=== PATIENT | female | born 1965 | race Caucasian/White ===

== ENCOUNTER 2021-12-28 21:02 | Emergency (ER) | payer BC, SELFPAY ==
[~2021-12-28] VITALS: Ht 157.5 cm; Wt 50.3 kg
[2021-12-28 21:02] VITALS: BP_SYST 118
--- NOTE | 2021-12-28 21:02 | NUR ---
Placed in room 5 . Placed on registered nurse cardiac, blood pressure machine and pulse oximeter. To gown for exam. Side rails up. Report given to DOUG CESPEDES
--- NOTE | 2021-12-28 21:09 | NUR ---
55 YR OLD AOX4, AMBULATORY FEMALE WITH COPLAINT OF BACK PAIN 06/16, SOB AND NAUSEA WITH VOMITING FOR ONE DAY. PT REPORTS SINCE RECIEVING COVID VACCINE SHE HAS HAD NUMEROUS HEALTH CONDITIONS DIAGNOSED RECENTLY. PT REPORTS BEING DIAGNOSED WITH NECK LYMPHOMA AND A HIATAL HERNIA. PT DENIES CHEST PAIN OR DIZZYNESS. PT PLACED ON VIDEO RENTAL CLERK. EKG COMPLETE. AWAITING MD EVALUATION. WILL MONITOR NEEDED
--- NOTE | 2021-12-28 22:54 | NUR ---
ER at bedside examining patient.
[2021-12-28 23:03] LABS: BASOPHILS % (AUTO) 0.2 % (0.0-2.0); EOSINOPHILS % (AUTO) 0.3 % (0.0-4.0); HEMATOCRIT 27.1 % (36-48); HEMOGLOBIN 8.7 g/dL (12.0-16.0); LYMPHOCYTES # (AUTO) 1.3 K/uL (1.0-5.5); LYMPHOCYTES % (AUTO) 10.5 % (20.5-51.5); MEAN CORPUSCULAR HEMOGLOBIN 24 pg (27-31); MEAN CORPUSCULAR HGB CONC 32 % (32-36); MEAN CORPUSCULAR VOLUME 74 fL (79.0-98.0); MONOCYTES # (AUTO) 0.6 K/uL (0.0-1.0); MONOCYTES % (AUTO) 4.9 % (1.7-9.3); NEUTROPHILS # (AUTO) 10.5 K/uL (1.8-7.7); NEUTROPHILS % (AUTO) 84.1 % (40.0-70.0); PLATELET COUNT (AUTO) 418 K/uL (130-430); RED BLOOD CELL COUNT(AUTO) 3.65 MIL/uL (4.2-6.2); RED CELL DISTRIBUTION WIDTH 16.7 % (9.0-15.0); WHITE BLOOD COUNT (AUTO) 12.5 K/uL (4.8-10.8)
[2021-12-28] MEDS ORDERED: KETOROLAC TROMETHAMINE 60 MG/2 ML VIAL IM ONE (23:30)
[2021-12-28] MEDS ORDERED: ONDANSETRON 4 MG ODT TAB PO ONE (23:30)
[2021-12-28 23:33] LABS: INR 1.2 (0.8-1.2); PROTHROMBIN TIME 11.6 SECS (9.5-12.5)
[2021-12-28 23:39] LABS: ANION GAP 10 (5-15); CALCIUM 9.6 mg/dL (8.4-11.0); CHLORIDE 102 mmol/L (98-107); CREATININE 0.66 mg/dL (0.55-1.30); GLUCOSE 107 mg/dL (70-99); POTASSIUM 3.8 mmol/L (3.5-5.1); SODIUM SERUM 137 mmol/L (136-145); UREA NITROGEN, BLOOD 15 mg/dL (8-21)
[2021-12-28 23:42] LABS: GFR AFRICAN AMERICAN 119 mL/min (>90)
[2021-12-28 23:45] LABS: ALANINE AMINOTRANSFERASE 10 U/L (12-78); ALBUMIN 2.9 g/dL (3.4-4.8); ASPARTATE AMINOTRANSFERASE 15 U/L (10-37); TOTAL BILIRUBIN 0.2 mg/dL (0.0-1.0)
--- NOTE | 2021-12-29 | NUR ---
URINE OBTAINED AND TAKEN TO LAB
[2021-12-29 01:02] LABS: BILIRUBIN,URINE NEGATIVE (NEGATIVE); CLARITY/URINE CLEAR (CLEAR); COLOR,URINE YELLOW (YELLOW); GLUCOSE,URINE NEGATIVE (NEGATIVE); KETONES,URINE NEGATIVE (NEGATIVE); LEUKOCYTE ESTERASE ,URINE NEGATIVE (NEGATIVE); NITRITE, URINE NEGATIVE (NEGATIVE); PROTEIN URINE NEGATIVE (NEGATIVE); UROBILINOGEN,URINE 0.2 (0.2-1.0)
[2021-12-29 01:03] LABS: BLOOD, URINE TRACE (NEGATIVE)
[2021-12-29 02:00] VITALS: BP_SYST 118
--- NOTE | 2021-12-29 02:49 | NUR ---
PT IN BED RESTING, EYES CLOSED. PT RESPONSIVE TO VERBAL STIMULI. AWAITING DISPOSITION. WILL MONITOR NEEDED
--- NOTE | 2021-12-29 04:39 | NUR ---
AT THE BEDSIDE TO RE EVALUATE PT. PT PENDING RADIOLOGY RESULTS. RECENT BIOPSY FOR LYMPHOMA. MD ENCOUARGED PT TO OBTAIN PET SCAN AND OBTAIN REFERALL TO ONCOLOGIST.
--- NOTE | 2021-12-29 06:42 | NUR ---
PT DISCHARGED WITH [facility] INSTRUCTIONS AND PRESCRIPTION. PT PROVIDED WITH COPY OF CT SCANS AND LABWORK. IV REMOVED CATHTER INTACT, BANDAID APPLIED TO SITE. PT TOLERATED WELL. PT ENCOUARGED TO FOLLOW UP WITH DEFENSIVE LINE COACH. ALL QUESTIONS ANSWERED. PT DISCHARGED WITH ALL BELONGINGS, AMBULATORY WITH STEADY GAIT.
[2022-01-02] MEDS ORDERED: HYDR-3917 PO (10:43)
== END 2021-12-29 06:49 | disposition home or self-care (01) ==
LOC: SED 21:02
DX: M48.54XA Collapsed vertebra, not elsewhere classified, thoracic region, initial encounter for fracture (principal); Z79.899 Other long term (current) drug therapy
CPT/HCPCS: 36415; 71046; 71275; 72128; 72131; 76376; 80053; 81003; 83880; 84484; 85025; 85379; 85610; 85730; 93005; 96372; 99285; J1885; Q0162; Q9967